=== PATIENT | male | born 1965 | race Caucasian/White ===

== ENCOUNTER 2021-08-02 13:49 | Emergency (ER) | payer BC ==
[~2021-08-02] VITALS: Ht 167.6 cm; Wt 61.7 kg
--- NOTE | 2021-08-02 14:41 | NUR ---
[email or web address], medical screening exam in progress
--- NOTE | 2021-08-02 14:52 | NUR ---
Toilet seat hat is on and ready for stool sample if patient will have diarrhea in ER.
[2021-08-02 15:12] LABS: HEMATOCRIT 35.8 % (36.7-47.1); MEAN CORPUSCULAR HEMOGLOBIN 34.4 uug (23.8-33.4); MEAN CORPUSCULAR VOLUME 98.2 fL (73.0-96.2); PLATELET COUNT (AUTO) 229 K/uL (152-348)
[2021-08-02] MEDS ORDERED: IV NORMAL SALINE 1000 ML BAG IV ONE (15:15)
[2021-08-02 15:20] LABS: ALANINE AMINOTRANSFERASE 21 U/L (16-63); ALKALINE PHOSPHATASE 59 U/L (50-136); ASPARTATE AMINOTRANSFERASE 13 U/L (15-37); BILIRUBIN,DIRECT < 0.1 mg/dL (0.0-0.2); BILIRUBIN,TOTAL 0.1 mg/dL (0.2-1.0); CARBON DIOXIDE 24 mmol/L (21-32); CHLORIDE 107 mmol/L (98-107); CREATININE 0.8 mg/dL (0.6-1.3); GLUCOSE 113 mg/dL (74-106); POTASSIUM 3.2 mmol/L (3.5-5.1); TOTAL PROTEIN, SERUM 5.4 g/dL (6.4-8.2); UREA NITROGEN, BLOOD 17 mg/dL (7-18)
[2021-08-02] MEDS ORDERED: POTASSIUM BICARBONATE/CIT AC 25 MEQ TABLET.EFF PO ONE (15:45)
[2021-08-02 15:53] LABS: EOSINOPHILS % (MANUAL) 27 % (0-8); LYMPHOCYTES % (MANUAL) 16 % (20-40); MONOCYTES % (MANUAL) 4 % (2-10); NEUTROPHILS % (MANUAL) 53 % (42-75)
[2021-08-02 16:12] LABS: *BILIRUBIN,URIN NEGATIVE (NEGATIVE); *BLOOD, URINE NEGATIVE (NEGATIVE); *CLARITY,URINE CLEAR (CLEAR); *COLOR,URINE YELLOW (YELLOW); *KETONES,URINE TRACE (NEGATIVE); *UROBILINOGEN,URINE 0.2 E.U./dl (NORMAL); LEUKOCYTE ESTERASE ,URINE NEGATIVE (NEGATIVE); NITRITE, URINE NEGATIVE (NEGATIVE); PH,URINE 5.5 (5.0-8.0); UGLUCOSE NEGATIVE (NEGATIVE)
--- NOTE | 2021-08-02 16:34 | NUR ---
Patient went to bathroom 3x but no bowel movement noted.
--- NOTE | 2021-08-02 17:24 | NUR ---
Soup from dietary was offered.
--- NOTE | 2021-08-02 18:14 | NUR ---
IV removed. Catheter intact and site benign. Pressure and 4x4 gauze applied to site. No bleeding noted. Patient discharged to home in stable condition and steady gait. Written and verbal after care instructions given. Patient verbalized understanding and compliance of instructions. Stressed follow up with primary doctor or return to ER for worsening s/s. Patient had one loose bowel movement seen while in ER, MD notified. Copies of all his tests' results were provided to patient except for the stool studies.
[2021-08-02] MEDS ORDERED: LOPERAMIDE HCL 2 MG CAPSULE PO ONE (18:15)
[2021-08-02] MEDS ORDERED: LOPERAMIDE HCL 2 MG CAPSULE ONE (18:21)
== END 2021-08-02 18:14 | disposition home or self-care (01) ==
LOC: ER 13:49
DX: R19.7 Diarrhea, unspecified (principal); Z20.822 Contact with and (suspected) exposure to COVID-19; D72.829 Elevated white blood cell count, unspecified; D64.9 Anemia, unspecified; E87.6 Hypokalemia; Z85.46 Personal history of malignant neoplasm of prostate; E11.9 Type 2 diabetes mellitus without complications
CPT/HCPCS: 36415; 80048; 80076; 81003; 85007; 85025; 86625; 87015; 87046; 87427; 87493; 87899; 89055; 96360; 99284; U0003; 70030-TC; A4663; J7030